=== PATIENT | female | born 2000 | race Caucasian/White ===

== ENCOUNTER 2022-05-03 09:14 | Observation (INO) | payer BC ==
[2022-04-29 10:25] VITALS: BMI 30.2
[2022-05-03] MEDS ORDERED: ONDANSETRON 4 MG/2 ML VIAL ONE (10:05)
[2022-05-03] MEDS ORDERED: LACTATED RINGERS 1,000 ML IV ONE ×2 (10:18→13:07)
[2022-05-03] MEDS ORDERED: SCOPOLAMINE 1 MG/72 HR PATCH TRANSDERM ONE (10:19)
[2022-05-03] MEDS ORDERED: DEXAMETHASONE SOD PHOSPHATE 4 MG/ML 1 ML VIAL IV ONE (10:19)
[2022-05-03] MEDS ORDERED: fentaNYL (PF) 50 MCG/1 ML VIAL IV ONE (10:41)
[2022-05-03] MEDS ORDERED: MIDAZOLAM HCL 10 MG/10 ML VIAL IV ONE (10:41)
[2022-05-03] MEDS ORDERED: MIDAZOLAM 2 MG/2 ML VIAL ONE (11:00)
[2022-05-03] MEDS ORDERED: DEXAMETHASONE SOD PHOSPHATE 4 MG/ML 1 ML VIAL ONE (11:00)
[2022-05-03] MEDS ORDERED: HYDROmorphone (PF) 1 MG/ML ONE (11:00)
[2022-05-03] MEDS ORDERED: ROPIVACAINE 5 MG/ML 30 ML VIAL ONE (11:00)
[2022-05-03] MEDS ORDERED: PROPOFOL 10 MG/ML 20 ML VIAL IV ONE (11:00)
[2022-05-03] MEDS ORDERED: LIDOCAINE 2% INJ 20 MG/ML (2 ML VIAL) ONE (11:00)
[2022-05-03] MEDS ORDERED: KETAMINE 10 MG/ML 20 ML VIAL ONE (11:00)
[2022-05-03] MEDS ORDERED: fentaNYL (PF) 50 MCG/ML 2 ML AMP ONE (11:00)
[2022-05-03] MEDS ORDERED: ceFAZolin 1,000 MG in SODIUM CHLORIDE 0.9% 1,000 ML IRRIGATION ONE (11:15)
--- NOTE | 2022-05-03 11:48 | P.ANPRN ---
Procedure Note - Anesthesia - Nerve Block Performed Left Adductor Canal Single Time Out Performed: Yes (1039) Date of Procedure: 05/03/22 Procedure Start Time: 10:40 Procedure Stop Time: 10:44 Location of Patient: PreOp Indication: Acute Post-Operative Pain, Dx/Pain Location (Left ankle pain), Requested by Surgeon Specifically requested for management of pain by DrMargarito: Francesco Rangel Sedation Type: Sedate with meaningful contact maintained Preparation: Sterile Prep Position: Supine Catheter: None Needle Types: Pajunk Needle Gauge: 21 (100 mm) Ultrasound used to visualize needle placement: Yes Ultrasound used to observe medication spread: Yes Injectate: 0.5% Ropivacaine (see comment for volume) (20 cc + 4mg of decadron) Blood Aspirated: No Pain Paresthesia on Injection Noted: No Resistance on Injection: Normal Image Stored and Saved: Yes Events: Uneventful and Well Tolerated Left Popliteal Single Time Out Performed: Yes (1039) Date of Procedure: 05/03/22 Procedure Start Time: 10:45 Procedure Stop Time: 10:51 Location of Patient: PreOp Indication: Acute Post-Operative Pain, Dx/Pain Location (Left ankle) Specifically requested for management of pain by Dr.: Francesco Rangel Sedation Type: Sedate with meaningful contact maintained Preparation: Sterile Prep Position: Right Lateral Catheter: None Needle Types: Pajunk Needle Gauge: 21 (100 mm) Ultrasound used to visualize needle placement: Yes Ultrasound used to observe medication spread: Yes Injectate: 0.5% Ropivacaine (see comment for volume) (15 cc + decadron 4 mg) Blood Aspirated: No Pain Paresthesia on Injection Noted: No Resistance on Injection: Normal Image Stored and Saved: Yes Events: Uneventful and Well Tolerated
--- NOTE | 2022-05-03 13:15 | XR ---
Intraoperative/procedural fluoroscopic services were provided for ORIF left ankle with distal tibia f ixation plate and screws and 2 medial malleolus screws. Total fluoroscopy time is 48 seconds with a t otal of 5 submitted images to PACS. Total DAP [id number]. Please see the operative note for further deta ils.
--- NOTE | 2022-05-03 13:15 | FL ---
Intraoperative/procedural fluoroscopic services were provided. Total fluoroscopy time is 48 seconds w ith a total of 5 submitted images to PACS. Please see the operative/procedural note for further detai ls. DAP: [id number]
[2022-05-03] MEDS ORDERED: HYDROmorphone 1 MG/ML 1 ML SYRINGE IVP PRN (13:19)
[2022-05-03] MEDS ORDERED: HYDROmorphone 0.5 MG/0.5 ML SYRINGE IVP PRN (13:19)
[2022-05-03] MEDS ORDERED: SENNOSIDES-DOCUSATE SODIUM 1 EACH TAB PO PRN (13:19)
[2022-05-03] MEDS ORDERED: HYDROcodone/APAP 5-325MG 1 EACH TAB PO PRN (13:19)
[2022-05-03] MEDS ORDERED: hydrOXYzine pamoate 25 MG CAP PO PRN (13:19)
[2022-05-03] MEDS: HYDROmorphone 0.5 MG/0.5 ML SYRINGE IVP PRN ×5 (13:47→22:08)
[2022-05-03] MEDS: HYDROcodone/APAP 5-325MG 1 EACH TAB PO PRN (17:07)
--- NOTE | 2022-05-03 18:02 | P.OP ---
Date of Procedure: 05/03/22 Preoperative Diagnosis: Closed left trimalleolar ankle fracture dislocation Postoperative Diagnosis: Same Procedure(s) Performed: 1. Open reduction internal fixation trimalleolar left ankle fracture (open reduction internal fixation medial and lateral malleolus, nonoperative management posterior malleolus) 2. Open reduction internal fixation left ankle syndesmosis 3. Application of short-leg splint by physician, left ankle Anesthesia: CARMELITA, regional Surgeon: Francesco Rangel Public Affairs Director #1: Raad León Estimated Blood Loss (ml): 10 IV fluids (ml): 1,200 Pathology: none sent Condition: stable Disposition: PACU Indications for Procedure: The patient is very pleasant previously healthy 21-year-old female was on a plane to [place] for a cruise when she lost her balance and fell resulting in an isolated injury to her left ankle. She was seen in an emergency department in [place], found to have an ankle fracture dislocation, reduced and splinted. She returned home for follow-up. I met with the patient and her mom in the office to discuss treatment. I recommended open reduction internal fixation after obtaining a computed tomography scan to better evaluate the posterior malleolus. I had a long discussion with the patient prior to surgery on the potential risks and complications of ankle fracture surgery. These risks include but are not limited to risk of anesthesia, superficial infection, deep infection, delayed wound healing, superficial wound necrosis, deep wound necrosis, damage to local blood vessels or nerves, fracture nonunion, fracture malunion, postoperative displacement of the ankle mortise, postoperative displacement of the syndesmosis, malreduction of the ankle mortise, posttraumatic arthritis, chronic pain, chronic swelling, an inability to regain preinjury level of function, generalized dissatisfaction with surgical outcome, DVT, PE, other medical complications, and possibly loss of life or limb. The patient understands that while these are the most common complications there are other less common complications possible. They provided their verbal and written consent to go forward with surgery. Description of Procedure: The patient's identified in preop holding and the correct left leg was marked with my initials. I reviewed the consent form with the patient and her parents. All their questions were answered. Her splint was taken down and the soft tissue over the left ankle was evaluated. There was wrinkling of the skin and no swelling or blister just that would prevent open reduction and internal fixation. The patient had a block placed by anesthesia. She was brought back to the operating room. She was positioned on the or table where general anesthetic, preoperative antibiotics, and tranexamic acid were given. A tourniquet was applied the proximal aspect the left leg. A bump was placed in the left buttock internally rotating the leg to neutral. A ramp was placed on the left leg to facilitate imaging. Prior to starting surgery timeout was performed identifying the correct patient, operative extremity, and procedure. Prior to prepping and draping the patient comparison x-rays including a mortise and a true lateral of the right ankle were obtained to use as a template during surgery for reconstruction of the left ankle. A nonsterile 1015 drape was then used followed by a presurgical scrub with a chlorhexidine scrub brush. The left leg was then prepped and draped in the standard sterile fashion. The leg was elevated, exsanguinated with an Esmarch bandage and the tourniquet was inflated to 250 mm a marker. I began by making a longitudinal incision to the distal fibula centered over the fracture site. Skin incision was made with a scalpel and dissection was carried down carefully through subcu tissue with tenotomy scissors. The superficial peroneal nerve was identified and carefully retracted. The fascia over the peroneal muscles and the periosteum over the distal fibula were sharply incised. The fracture site was immediately visualized. Consolidating hematoma and early callus were sharply debrided to allow cortical read of the reduction. There was a large posterior butterfly fragment. The butterfly fragment was minimally reduced from the distal fibula and a lobster claw clamp was placed to provisionally hold and prevent displacement of the butterfly fragment from the distal fibula. Then using longitudinal traction the proximal spike of the butterfly fragment was keyed into the more proximal shaft of the fibula. Visually the fracture appeared to be anatomically reduced. Fluoroscopy was used to verify the reduction. I then placed nonlocking 2.0 mm lag screws from both the proximal and distal shaft into the butterfly fragment generating excellent compression. Both lobster claw reduction clamps were removed and the reduction held. I then placed a one third tubular plate centered over the fracture. The position of the plate was verified with fluoroscopy. I placed 3 nonlocking 3.5mm screws proximal and distal to the fracture. The position of the hardware was verified with fluoroscopy. Attention was then turned to the medial malleolus. A longitudinal incision was made over the medial malleolus. Skin incision with a scalpel and dissection was carried down carefully to subcu tissue with tenotomy scissors. The saphenous vein was identified and carefully retracted anteriorly. The periosteum over the medial malleolus was sharply elevated. The medial malleolus fracture was gently booked open and consolidating hematoma was carefully removed from the joint. T he medial talar dome was visualized and free from any osteochondral fragments. The joint was thoroughly irrigated. A 2.0 mm drill bit was used to create a single hole just proximal to the fracture. One farhat of a [id number] reduction clamp was placed in this drill hole in the second farhat was placed at the tip of the medial malleolus. The medial malleolus fragment was carefully teased into position and the clamp was tightened nicely reducing the fracture. On visualization the fracture appeared anatomically reduced. The reduction was verified with fluoroscopy. I then placed 2 nonlocking 3.5 mm screws both measuring 46 mm through the medial malleolus fragment. The reduction clamp was removed and the medial malleolus remained reduced. Attention was then turned to the syndesmosis. I dissected anteriorly to the fibula distally to allow visualization of the incisura. Using the "thumb" technique the fibula was gently pushed into the notch of the distal fibula. Fluoroscopy was used to verify reduction. I also visualized anteriorly to make sure that the fibula was centered in the incisura. A lwzas-gd-alryp reduction clamp was then used with 1 farhat over the lateral plate and 1 farhat over the medial tibia. The reduction was verified with fluoroscopy and compared to the preoperative comparison films of the right ankle. I then placed a tight rope from lateral to medial across the syndesmosis. The Endobutton was positioned directly against the medial tibia and both limbs of the tight rope device were tightened. Fluoroscopy was brought in to verify reduction of the syndesmosis and placement of the tight rope device. Attention was then turned to the posterior malleolus. Fluoroscopy was brought in and a true talar dome overlap lateral was obtained and the posterior malleolus fragment appeared to be small and minimally reduced. The talus was centered under the tibial plafond. Due to the minimal displacement and small size the fracture fragment I elected to treat the posterior malleolus nonoperatively. Final fluoroscopic images were taken verifying reduction of the ankle mortise, syndesmosis, and placement of the hardware. Both wounds were thoroughly irrig ated and closed in layers. Sterile dressings were applied followed by a well- padded bulky Carrero splint with the ankle in neutral. The tourniquet was let down. The patient was then awoken from her anesthetic, transferred from the OR table to the [facility], and brought to recovery having tolerated the procedure well. Raad León PA-C was required as a skilled speech therapy assistant for patient positioning, exposure, reduction of fracture, placement of hardware, closure of wound, and application of splint. Plan: The patient is going to be admitted overnight for pain control. She is remain strictly nonweightbearing on her operative extremity. She'll be treated with both oral and IV pain medication. She will receive 2 doses postoperative antibiotics. Plan for discharge home tomorrow when her pain is controlled. She'll need follow-up in the office in 2 weeks for splint removal and nonweightbearing x-rays of the left ankle out of the splint.
[2022-05-03] MEDS: ASPIRIN 81 MG PO SCH (19:45)
[2022-05-04] MEDS: HYDROmorphone 0.5 MG/0.5 ML SYRINGE IVP PRN (03:47)
[2022-05-04 07:39] VITALS: RESP 16
[2022-05-04] MEDS: ASPIRIN 81 MG PO SCH (08:20)
[2022-05-04] MEDS: HYDROcodone/APAP 5-325MG 1 EACH TAB PO PRN (09:19)
--- NOTE | 2022-05-04 09:22 | P.DS ---
Providers Date of admission: 05/04/22 09:05 Expected date of discharge: 05/04/22 Attending physician: Francesco Rangel Primary care physician: [facility] Course: This patient is a 21-year-old female who sustained a left ankle fracture dislocation while on her way to [place]. She was initially evaluated in the emergency department in [place], where her ankle was reduced and splinted. She followed up with Dr. Rangel in the office. Patient underwent an open reduction and internal fixation of left trimalleolar ankle fracture on 05/03/22. The procedure was performed without complication or sequelae. Vital signs and labs are stable on postoperative day #1. Patient is examined bedside this morning. She states the pain in her left ankle is well controlled at this time. Patient has been ambulating with crutches post- operatively without issue. Patient's splint is comfortable. There are no new complaints the day of discharge. On examination, patient is sitting up in bed in no apparent distress. She is alert and oriented 3. On inspection of the left lower extremity, there is a clean, dry, intact short leg splint in place. Visible portion of the toes are warm and well perfused. Patient is able to wiggle toes appropriately. Patient is discharged home today in good condition. She should follow-up in the office in two weeks for splint removal and updated x-rays. Please see med rec for accurate list of discharge medications. Plan - Discharge Summary Discharge Rx Participant: No New Discharge Prescriptions: New Aspirin 81 mg PO BID 30 Days #60 tab Docusate [Colace] 100 mg PO BID #60 capsule HYDROcodone/APAP 5-325MG [Columbus 5-325] 1 - 2 tab PO Q6HR PRN 7 Days #28 tab PRN Reason: Pain No Action Hydrocodone/Acetaminophen [Hydrocodone/Acetaminophen 7.5-325] 1 tab PO Q8H PRN PRN Reason: Pain Nf-Apri Control 1 tab PO DAILY diazePAM [Diazepam] 2 mg PO DAILY PRN PRN Reason: Anxiety Docusate Sodium [Dok] 100 mg PO DAILY Discharge Medication List Docusate Sodium [Dok] 100 mg PO DAILY 04/29/22 [History] Hydrocodone/Acetaminophen [Hydrocodone/Acetaminophen 7.5-325] 1 tab PO Q8H PRN 04/29/22 [History] Nf-Apri Control 1 tab PO DAILY 04/29/22 [History] diazePAM [Diazepam] 2 mg PO DAILY PRN 04/29/22 [History] Aspirin 81 mg PO BID 30 Days #60 tab 05/04/22 [Rx] Docusate [Colace] 100 mg PO BID #60 capsule 05/04/22 [Rx] HYDROcodone/APAP 5-325MG [Columbus 5-325] 1 - 2 tab PO Q6HR PRN 7 Days #28 tab 05/04/22 [Rx] Follow up Appointment(s)/Referral(s): Brad Maharaj MD [Primary Care Provider] - 1 Week Francesco Rangel MD [Medical Doctor] - 2 Weeks (With Raad) Patient Instructions/Handouts: *Surgery [facility] - Scopalamine Patch Instructions Activity/Diet/Wound Care/Special Instructions: Strict non-weight bearing operative extremity with a walker, crutches. Keep splint clean, dry, intact until follow-up appointment in the office. Do not remove splint. Keep operative extremity elevated for swelling and pain control. Take pain medications as needed. Take aspirin 81mg BID x 4 weeks for blood clot prevention. Take Colace while taking Columbus. Follow-up in the office in two weeks at [facility]. Call the office with any questions or concerns,
[2022-05-04] MEDS ORDERED: HYDROcodone/APAP 5-325MG 1 EACH TAB PO PRN (12:35)
[2022-05-04 13:49] VITALS: BP 122/76; PULSE 96; TEMP 98.4
== END 2022-05-04 14:11 | disposition home or self-care (01) ==
LOC: OR 09:14 → 4SSUR 13:10 → OR 05-04 09:05
PROVIDERS: ADMIT Orthopaedic Surgery; ATTEND Orthopaedic Surgery
DX: S82.852A Displaced trimalleolar fracture of left lower leg, initial encounter for closed fracture (principal); W19.XXXA Unspecified fall, initial encounter; R45.0 Nervousness; F41.9 Anxiety disorder, unspecified; Z98.890 Other specified postprocedural states; Z82.49 Family history of ischemic heart disease and other diseases of the circulatory system; Z83.2 Family history of diseases of the blood and blood-forming organs and certain disorders involving the immune mechanism; Z79.891 Long term (current) use of opiate analgesic; Z79.899 Other long term (current) drug therapy
CPT/HCPCS: 97161; 64447; 81025; 64445; 76942; 73610; 27822; 27829; G0378; C1713; J2250 ×2; J1100; J0690 ×3; J2405; J3010 ×2; J1170 ×3; J2795; J2704; J2001

== ENCOUNTER 2022-05-15 15:27 | Emergency (ER) | payer BC ==
[2022-05-15 15:41] VITALS: RESP 20; TEMP 98
[2022-05-15] MEDS ORDERED: HYDROmorphone 1 MG/ML 1 ML SYRINGE IVP STA ×2 (16:06→18:07)
--- NOTE | 2022-05-15 16:26 | ED ---
General Adult HPI - General Chief complaint: Back Pain/Injury Stated complaint: post surgery/sob/back pain Time Seen by Provider: 05/15/22 15:58 Source: patient, RN notes reviewed Mode of arrival: ambulatory Limitations: no limitations - History of Present Illness Initial comments: Patient is a pleasant 21-year-old female presenting to the emergency department with concerns with back pain. Onset of symptoms was last night and continues. Patient denies any dyspnea however discomfort does increase with deep breaths. No leg pain or leg swelling. Patient does have history of recent left tib-fib fracture with surgical repair 12 days ago. No chest pain. - Related Data Home Medications Medication Instructions Recorded Confirmed Docusate Sodium [Dok] 100 mg PO DAILY 04/29/22 05/03/22 Hydrocodone/Acetaminophen 1 tab PO Q8H PRN 04/29/22 05/03/22 [Hydrocodone/Acetaminophen 7.5-325] Nf-Apri Control 1 tab PO DAILY 04/29/22 05/03/22 diazePAM [Diazepam] 2 mg PO DAILY PRN 04/29/22 05/03/22 Previous Rx's Medication Instructions Recorded Aspirin 81 mg PO BID 30 Days #60 tab 05/04/22 Docusate [Colace] 100 mg PO BID #60 capsule 05/04/22 HYDROcodone/APAP 5-325MG [Nova 1 - 2 tab PO Q6HR PRN 7 Days #28 05/04/22 5-325] tab Allergies Allergy/AdvReac Type Severity Reaction Status Date / Time No Known Allergies Allergy Verified 05/15/22 15:41 Review of Systems ROS Statement: Those systems with pertinent positive or pertinent negative responses have been documented in the HPI. ROS Other: All systems not noted in ROS Statement are negative. Constitutional: Denies: fever Eyes: Denies: eye pain ENT: Denies: ear pain Respiratory: Denies: cough, dyspnea Cardiovascular: Denies: chest pain Endocrine: Denies: fatigue Gastrointestinal: Denies: abdominal pain Genitourinary: Denies: urgency Musculoskeletal: Reports: as per HPI Skin: Denies: rash Neurological: Denies: weakness Past Medical History Past Medical History: No Reported History History of Any Multi-Drug Resistant Organisms: None Reported Past Surgical History: Orthopedic Surgery, Tonsillectomy Additional Past Surgical History / Comment(s): lt ankle Past Anesthesia/Blood Transfusion Reactions: No Reported Reaction Past Psychological History: Anxiety Smoking Status: Never smoker Past Alcohol Use History: Rare Past Drug Use History: None Reported - Past Family History Father Additional Family Medical History / Comment(s): "heart issues" General Exam Limitations: no limitations General appearance: alert, in no apparent distress Head exam: Present: normocephalic Eye exam: Present: normal appearance Neck exam: Present: normal inspection Respiratory exam: Present: normal lung sounds bilaterally. Absent: chest wall tenderness Cardiovascular Exam: Present: regular rate, normal rhythm Expanded Peripheral pulses: 2+: Radial (R), Radial (L) GI/Abdominal exam: Present: soft. Absent: tenderness Extremities exam: Present: normal inspection, other (Patient does have a walking boot on left lower leg). Absent: calf tenderness Back exam: Present: tenderness (Mild tenderness left mid back below the scapula) Neurological exam: Present: alert. Absent: motor sensory deficit Psychiatric exam: Present: normal affect, normal mood Skin exam: Present: normal color Course Vital Signs 05/15/22 05/15/22 05/15/22 15:36 16:25 16:47 Temperature 98.0 F Pulse Rate 99 102 H Respiratory 20 22 20 Rate Blood Pressure 115/76 108/66 O2 Sat by Pulse 99 96 Oximetry Medical Decision Making - Medical Decision Making Was pt. sent in by a medical professional or institution ([facility], [employer]OL [employer]ER, urgent care, hospital, or [place] health care facility...) When possible be specific @ -No Did you speak to anyone other than the patient for history (EMS, parent, family, police, friend...)? What history was obtained from this source @ -No Did you review nursing and triage notes (agree or disagree)? Why? @ -I reviewed and agree with nursing and triage notes Were old charts reviewed (outside hosp., previous admission, EMS record, old EKG, old radiological studies, urgent care reports/EKG's, [place] health care facility records)? Report findings @ -No old charts were reviewed Differential Diagnosis (chest pain, altered mental status, abdominal pain women, abdominal pain men, vaginal bleeding, weakness, fever, dyspnea, syncope, headache, dizziness, GI bleed, back pain, seizure, CVA, palpatations, mental health)? @ -Differential Back Pain: Strain, zoster, cauda equina syndrome, epidural abscess, vertebral osteomyelitis, discitis, fracture, subluxation, disc herniation, DJD, spinal stenosis, dissection, AAA, pancreatitis, peptic ulcer disease, pyelonephritis, kidney stone, this is not meant to be an all-inclusive list. EKG interpreted by me (3pts min.). @ -As above X-rays interpreted by me (1pt min.). @ -Chest x-ray shows no acute process CT interpreted by me (1pt min.). @ -Computed tomography scan shows very mild effusion U/S interpreted by me (1pt. min.). @ -None done What testing was considered but not performed or refused? (CT, X-rays, U/S, labs)? Why? @ -None What meds were considered but not given or refused? Why? @ -None Did you discuss the management of the patient with other professionals (professionals i.e. , PA, TOOL DRESSER, lab, RT, psych nurse, geriatric social work professor, driver/refuse collector, teacher, gifts officer, case operator)? Give summary @ -No Was smoking cessation discussed for >3mins.? @ -No Was critical care preformed (if so, how long)? @ -No Were there social determinants of health that impacted care today? How? (Homelessness, low income, unemployed, alcoholism, drug addiction, transportation, low edu. Level, literacy, decrease access to med. care, fdc, rehab)? @ -No Was there de-escalation of care discussed even if they declined (Discuss DNR or withdrawal of care, Hospice)? DNR status @ -No What co-morbidities impacted this encounter? (DM, HTN, Smoking, COPD, CAD, Cancer, CVA, ARF, Chemo, Hep., AIDS, mental health diagnosis, sleep apnea, morbid obesity)? @ -None Was patient admitted / discharged? Hospital course, mention meds given and route, prescriptions, significant lab abnormalities, going to OR and other pertinent info. @ -Patient evaluated and felt much better with pain meds however symptoms are concerning to return and patient is receptive to further medication prior to discharge. Patient and family are updated on results and need for follow-up. Undiagnosed new problem with uncertain prognosis? @ -No Drug Therapy requiring intensive monitoring for toxicity (Heparin, Nitro, Insulin, Cardizem)? @ -No Were any procedures done? @ -No Diagnosis/symptom? @ -Back pain Acute, or Chronic, or Acute on Chronic? @ -Acute Uncomplicated (without systemic symptoms) or Complicated (systemic symptoms)? @ -default Side effects of treatment? @ -No Exacerbation, Progression, or Severe Exacerbation? @ -No Poses a threat to life or bodily function? How? (Chest pain, [place], [place], pneumonia, PE, COPD, DKA, ARF, appy, cholecystitis, CVA, Diverticulitis, Homicidal, Suicidal, threat to staff... and all critical care pts) @ -No - Lab Data Result diagrams: 05/15/22 16:45 05/15/22 16:45 Lab Results 05/15/22 05/15/22 05/15/22 Range/Units 16:45 16:45 16:45 WBC 14.7 H (3.8-10.6) k/uL RBC 4.58 (3.80-5.40) m/uL Hgb 13.5 (11.4-16.0) gm/dL Hct 40.1 (34.0-46.0) % MCV 87.5 (80.0-100.0) fL MCH 29.4 (25.0-35.0) pg MCHC 33.6 (31.0-37.0) g/dL RDW 12.0 (11.5-15.5) % Plt Count 417 (150-450) k/uL MPV 7.2 Neutrophils % 85 % Lymphocytes % 10 % Monocytes % 3 % Eosinophils % 1 % Basophils % 0 % Neutrophils # 12.5 H (1.3-7.7) k/uL Lymphocytes # 1.4 (1.0-4.8) k/uL Monocytes # 0.5 (0-1.0) k/uL Eosinophils # 0.1 (0-0.7) k/uL Basophils # 0.1 (0-0.2) k/uL PT 10.0 (9.0-12.0) sec INR 0.9 (<1.2) APTT 20.9 L (22.0-30.0) sec D-Dimer 2.83 H (<0.60) mg/L FEU Sodium 135 L (137-145) mmol/L Potassium 4.4 (3.5-5.1) mmol/L Chloride 103 (98-107) mmol/L Carbon Dioxide 25 (22-30) mmol/L Anion Gap 7 mmol/L BUN 9 (7-17) mg/dL Creatinine 0.68 (0.52-1.04) mg/dL Est GFR (CKD-EPI)AfAm >90 (>60 ml/min/1.73 sqM) Est GFR (CKD-EPI)NonAf >90 (>60 ml/min/1.73 sqM) Glucose 108 H (74-99) mg/dL Calcium 9.5 (8.4-10.2) mg/dL Total Bilirubin 0.4 (0.2-1.3) mg/dL AST 21 (14-36) U/L ALT 22 (4-34) U/L Alkaline Phosphatase 114 (38-126) U/L Total Protein 7.1 (6.3-8.2) g/dL Albumin 3.9 (3.5-5.0) g/dL Disposition Clinical Impression: Mid back pain Disposition: HOME SELF-CARE Condition: Stable Instructions (If sedation given, give patient instructions): Back Pain (ED) Additional Instructions: Please do follow-up with primary care physician in the next couple days for recheck. Have primary care physician review computed tomography scan. Return for fever, difficulty breathing, increased pain, change or worsening symptoms or any other concerns. [id number] Motrin as needed. Is patient prescribed a controlled substance at d/c from ED?: No Referrals: Brad Maharaj MD [Primary Care Provider] - 1-2 days Time of Disposition: 18:10
--- NOTE | 2022-05-15 16:34 | XR ---
EXAMINATION TYPE: XR chest 1V portable DATE OF EXAM: 05/15/2022 COMPARISON: NONE HISTORY: Pain TECHNIQUE: Single view FINDINGS: Heart and mediastinum are normal. Lungs are clear of consolidation. There is no heart failure. No pleural effusion. IMPRESSION: No active cardiopulmonary disease. Suboptimal inspiration.
[2022-05-15 16:59] LABS: Basophils # (A) 0.1 k/uL (0-0.2); Basophils % (A) 0 %; Eosinophils # (A) 0.1 k/uL (0-0.7); Eosinophils % (A) 1 %; HCT 40.1 % (34.0-46.0); HGB 13.5 gm/dL (11.4-16.0); Lymphocytes # (A) 1.4 k/uL (1.0-4.8); Lymphocytes % (A) 10 %; MCH 29.4 pg (25.0-35.0); MCHC 33.6 g/dL (31.0-37.0); MCV 87.5 fL (80.0-100.0); Mean Platelet Volume 7.2; Monocytes # (A) 0.5 k/uL (0-1.0); Monocytes % (A) 3 %; Neutrophils # (A) 12.5 k/uL (1.3-7.7); Neutrophils % (A) 85 %; Platelet Count 417 k/uL (150-450); RBC 4.58 m/uL (3.80-5.40); WBC 14.7 k/uL (3.8-10.6)
[2022-05-15 17:11] LABS: ALT 22 U/L (4-34); AST 21 U/L (14-36); African American GFR (CKD) >90 (>60 ml/min/1.73 sqM); Albumin 3.9 g/dL (3.5-5.0); Alkaline Phosphatase 114 U/L (38-126); Anion Gap 7 mmol/L; Blood Urea Nitrogen 9 mg/dL (7-17); Calcium 9.5 mg/dL (8.4-10.2); Carbon Dioxide 25 mmol/L (22-30); Chloride 103 mmol/L (98-107); Glucose 108 mg/dL (74-99); Non-African American GFR(CKD) >90 (>60 ml/min/1.73 sqM); Potassium 4.4 mmol/L (3.5-5.1); Sodium 135 mmol/L (137-145); Total Bilirubin 0.4 mg/dL (0.2-1.3); Total Protein 7.1 g/dL (6.3-8.2)
[2022-05-15 17:21] LABS: INR 0.9 (<1.2)
[2022-05-15 17:25] LABS: Partial Thromboplastin Time 20.9 sec (22.0-30.0)
--- NOTE | 2022-05-15 17:49 | CT ---
EXAMINATION TYPE: CT angio chest DATE OF EXAM: 05/15/2022 COMPARISON: None HISTORY: posterior chest pain, elevated d-dimer. CT DLP: 270.8 mGycm Automated exposure control for dose reduction was used. CONTRAST: Performed with IV Contrast, patient injected with 75cc mL of Isovue 370. There are Three-D postprocessed images. There is no mediastinal adenopathy. There are no hilar masses. Thoracic aorta appears intact. No aneu rysm or dissection. There is normal contrast opacification of the pulmonary arteries. No filling defect. There is some pleural fluid and atelectasis and infiltrate left posterior lung base. The thoracic spine is intact. No compression fracture. The sternum is intact. IMPRESSION: No evidence of pulmonary embolism. There is some left lower lobe infiltrate and atelectasis and pleur al effusion.
[2022-05-15 18:53] VITALS: BP 115/79; PULSE 86
== END 2022-05-15 18:53 | disposition home or self-care (01) ==
LOC: EC 15:27
DX: M54.6 Pain in thoracic spine (principal); F41.9 Anxiety disorder, unspecified
CPT/HCPCS: 36415; 85379; 80053; 85025; 85610; 85730; 71045; 71275; 99284; 96374; 96376; J1170; Q9967

== ENCOUNTER 2022-06-05 10:16 | Emergency (ER) | payer BC ==
[2022-06-05] MEDS ORDERED: KETOROLAC 15 MG/ML 1 ML VIAL IVP STA (10:46)
[2022-06-05] MEDS ORDERED: KETOROLAC 15 MG/ML 1 ML VIAL IM STA (10:53)
[2022-06-05 11:25] LABS: Basophils % (A) 0 %; Eosinophils # (A) 0.4 k/uL (0-0.7); Eosinophils % (A) 4 %; HGB 13.9 gm/dL (11.4-16.0); Lymphocytes % (A) 18 %; MCH 28.9 pg (25.0-35.0); MCHC 33.8 g/dL (31.0-37.0); MCV 85.5 fL (80.0-100.0); Mean Platelet Volume 7.4; Monocytes # (A) 0.5 k/uL (0-1.0); Monocytes % (A) 5 %; Neutrophils # (A) 8.5 k/uL (1.3-7.7); Neutrophils % (A) 73 %; Platelet Count 388 k/uL (150-450); RBC 4.79 m/uL (3.80-5.40); RDW 12.6 % (11.5-15.5); WBC 11.6 k/uL (3.8-10.6)
[2022-06-05 11:35] LABS: ALT 26 U/L (4-34); AST 23 U/L (14-36); African American GFR (CKD) >90 (>60 ml/min/1.73 sqM); Alkaline Phosphatase 141 U/L (38-126); Anion Gap 9 mmol/L; Blood Urea Nitrogen 10 mg/dL (7-17); Calcium 9.6 mg/dL (8.4-10.2); Carbon Dioxide 25 mmol/L (22-30); Chloride 102 mmol/L (98-107); Glucose 89 mg/dL (74-99); Non-African American GFR(CKD) >90 (>60 ml/min/1.73 sqM); Potassium 4.4 mmol/L (3.5-5.1); Sodium 136 mmol/L (137-145); Total Bilirubin 0.5 mg/dL (0.2-1.3); Total Protein 7.1 g/dL (6.3-8.2)
[2022-06-05] MEDS ORDERED: APIXABAN 5 MG TAB PO STA (11:40)
--- NOTE | 2022-06-05 11:43 | US ---
EXAMINATION TYPE: US venous doppler duplex LE LT DATE OF EXAM: 06/05/2022 10:46 AM COMPARISON: NONE CLINICAL INDICATION: Female, 21 years old with history of swelling pain s/p ankle surgery; SIDE PERFORMED: Left TECHNIQUE: The lower extremity deep venous system is examined utilizing real time linear array sonog christopher with graded compression, doppler sonography and color-flow sonography. VESSELS IMAGED: Common Femoral Vein Deep Femoral Vein Greater Saphenous Vein * Femoral Vein Popliteal Vein Small Saphenous Vein * Proximal Calf Veins (* superficial vessels) Left Leg: Positive for DVT. Extensive thrombus seen from groin through proximal calf veins. No flow seen. Compressions deferred due to the acute appearance of thrombus. Grayscale, color doppler, spectral doppler imaging performed of the deep veins of the left lower extr emity. Hyperechoic material expands the lumen with absent color flow beginning in the left groin reg ion extending below the left knee. IMPRESSION: Long segment acute DVT in the left lower extremity.
[2022-06-05 11:52] LABS: C Reactive Protein 4.7 mg/dL (<1.0)
[2022-06-05 12:33] LABS: Erythrocyte Sedimentation Rate 34 mm/hr (0-20)
--- NOTE | 2022-06-05 13:27 | ED ---
Lower Extremity Injury HPI - General Chief Complaint: Extremity Injury, Lower Stated Complaint: Post surgical leg pain Time Seen by Provider: 06/05/22 10:27 Source: patient Mode of arrival: wheelchair Limitations: no limitations - History of Present Illness Initial Comments: Patient is a 21-year-old female who presents to the emergency department for lef t leg pain. Patient had trimalleolar ankle fracture surgery with Dr. Rangel approximately one month ago. She reports increased leg pain over the past 2 days mostly in her groin and thigh. She denies any recent falls or injury. She has not been bearing weight per instruction but she has been performing range of motion. She denies fever, chills, nausea, vomiting. No chest pain or shortness of breath. Patient does have family history of both DVT and PE. She is not on blood thinners. She does use oral contraceptives. Denies long car rides, airplane travel, known cancers, tobacco use - Related Data Home Medications Medication Instructions Recorded Confirmed Docusate Sodium [Dok] 100 mg PO DAILY 04/29/22 05/03/22 Hydrocodone/Acetaminophen 1 tab PO Q8H PRN 04/29/22 05/03/22 [Hydrocodone/Acetaminophen 7.5-325] Nf-Apri Control 1 tab PO DAILY 04/29/22 05/03/22 diazePAM [Diazepam] 2 mg PO DAILY PRN 04/29/22 05/03/22 Previous Rx's Medication Instructions Recorded Aspirin 81 mg PO BID 30 Days #60 tab 05/04/22 Docusate [Colace] 100 mg PO BID #60 capsule 05/04/22 HYDROcodone/APAP 5-325MG [Sandy 1 - 2 tab PO Q6HR PRN 7 Days #28 05/04/22 5-325] tab Apixaban [Eliquis Starter Pack 0 mg PO DIRECTED 30 Days #1 06/05/22 (for VTE)] packet Ibuprofen [Motrin] 800 mg PO Q8HR PRN #30 tab 06/05/22 Allergies Allergy/AdvReac Type Severity Reaction Status Date / Time No Known Allergies Allergy Verified 06/05/22 10:22 Review of Systems ROS Statement: Those systems with pertinent positive or pertinent negative responses have been documented in the HPI. ROS Other: All systems not noted in ROS Statement are negative. Past Medical History Past Medical History: No Reported History History of Any Multi-Drug Resistant Organisms: None Reported Past Surgical History: Orthopedic Surgery, Tonsillectomy Additional Past Surgical History / Comment(s): lt ankle Past Anesthesia/Blood Transfusion Reactions: No Reported Reaction Past Psychological History: Anxiety Smoking Status: Never smoker Past Alcohol Use History: Rare Past Drug Use History: None Reported - Past Family History Father Additional Family Medical History / Comment(s): "heart issues" General Exam Limitations: no limitations General appearance: alert, in no apparent distress Head exam: Present: atraumatic, normocephalic, normal inspection Respiratory exam: Present: normal lung sounds bilaterally. Absent: respiratory distress, wheezes, rales, rhonchi, stridor Cardiovascular Exam: Present: regular rate, normal rhythm, normal heart sounds. Absent: systolic murmur, diastolic murmur, rubs, gallop, clicks Extremities exam: Present: full ROM, normal capillary refill, other (Left lower extremity pink in color. No warmth, blanching, tenderness. Mild generalized non pitting edema. Negative elsie sign. DP 2+. Sensation intact ) Neurological exam: Present: alert, oriented X3, CN II-XII intact Psychiatric exam: Present: normal affect, normal mood Skin exam: Present: warm, dry, intact. Absent: rash Course Vital Signs 06/05/22 06/05/22 06/05/22 10:17 12:25 12:52 Temperature 99.2 F Pulse Rate 110 H 76 92 Respiratory 18 Rate Blood Pressure 108/78 O2 Sat by Pulse 98 97 97 Oximetry 06/05/22 13:31 Temperature 98.2 F Pulse Rate 91 Respiratory 14 Rate Blood Pressure 100/68 O2 Sat by Pulse 97 Oximetry Medical Decision Making - Medical Decision Making Was pt. sent in by a medical professional or institution (, PA, MAJOR ACCOUNT MANAGER, urgent care, hospital, or [facility]...) When possible be specific @ -No Did you speak to anyone other than the patient for history (EMS, parent, family, police, friend...)? What history was obtained from this source @ -No Did you review nursing and triage notes (agree or disagree)? Why? @ -I reviewed and agree with nursing and triage notes Were old charts reviewed (outside hosp., previous admission, EMS record, old EKG, old radiological studies, urgent care reports/EKG's, [facility] records)? Report findings @ -No old charts were reviewed Differential Diagnosis (chest pain, altered mental status, abdominal pain women, abdominal pain men, vaginal bleeding, weakness, fever, dyspnea, syncope, headache, dizziness, GI bleed, back pain, seizure, CVA, palpatations, mental health)? @ -Cellulitis, dependent edema, abscess, DVT EKG interpreted by me (3pts min.). @ -As above X-rays interpreted by me (1pt min.). @ -None done CT interpreted by me (1pt min.). @ -None done U/S interpreted by me (1pt. min.). @ -No. Ultrasound report shows long segment acute DVT from the groin through the proximal calf veins What testing was considered but not performed or refused? (CT, X-rays, U/S, labs)? Why? @ -None What meds were considered but not given or refused? Why? @ -None Did you discuss the management of the patient with other professionals (professionals i.e. , PA, MAJOR ACCOUNT MANAGER, lab, RT, psych nurse, clinical social worker, asphalt heater operator, teacher, probation officer, case managers)? Give summary @ -No Was smoking cessation discussed for >3mins.? @ -No Was critical care preformed (if so, how long)? @ -No Were there social determinants of health that impacted care today? How? (Homelessness, low income, unemployed, alcoholism, drug addiction, transportation, low edu. Level, literacy, decrease access to med. care, nursing home, rehab)? @ -No Was there de-escalation of care discussed even if they declined (Discuss DNR or withdrawal of care, Hospice)? DNR status @ -No What co-morbidities impacted this encounter? (DM, HTN, Smoking, COPD, CAD, Cancer, CVA, ARF, Chemo, Hep., AIDS, mental health diagnosis, sleep apnea, morbid obesity)? @ -None Was patient admitted / discharged? Hospital course, mention meds given and route, prescriptions, significant lab abnormalities, going to OR and other pertinent info. @ -Patient presenting with left lower extremity pain. She is neurovascularly intact. Patient has multiple risk factors for DVT. No chest pain or SOB. Ultrasound obtained which shows long segment acute DVT from the groin to the proximal calf veins. I did speak with Dr. Chance who does confirm iliofemoral involvement. I spoke with Dr. Singh for admission who declines states this can be managed outpatient. Patient given first dose of Eliquis. She will be discharged with Eliquis and vascular surgery referral. Patient discharged in stable condition. We discussed strict return parameters. Undiagnosed new problem with uncertain prognosis? @ -No Drug Therapy requiring intensive monitoring for toxicity (Heparin, Nitro, Insulin, Cardizem)? @ -No Were any procedures done? @ -No Diagnosis/symptom? @ -DVT Acute, or Chronic, or Acute on Chronic? @ -acute Uncomplicated (without systemic symptoms) or Complicated (systemic symptoms)? @ -uncomplicated Side effects of treatment? @ -No Exacerbation, Progression, or Severe Exacerbation? @ -No Poses a threat to life or bodily function? How? (Chest pain, [place], [place], pneumonia, PE, COPD, DKA, ARF, appy, cholecystitis, CVA, Diverticulitis, Homicidal, Suicidal, threat to staff... and all critical care pts) @ -No Dr. Carrero is my attending. - Lab Data Result diagrams: 06/05/22 11:05 06/05/22 11:05 Lab Results 06/05/22 06/05/22 Range/Units 11:05 11:05 WBC 11.6 H (3.8-10.6) k/uL RBC 4.79 (3.80-5.40) m/uL Hgb 13.9 (11.4-16.0) gm/dL Hct 41.0 (34.0-46.0) % MCV 85.5 (80.0-100.0) fL MCH 28.9 (25.0-35.0) pg MCHC 33.8 (31.0-37.0) g/dL RDW 12.6 (11.5-15.5) % Plt Count 388 (150-450) k/uL MPV 7.4 Neutrophils % 73 % Lymphocytes % 18 % Monocytes % 5 % Eosinophils % 4 % Basophils % 0 % Neutrophils # 8.5 H (1.3-7.7) k/uL Lymphocytes # 2.0 (1.0-4.8) k/uL Monocytes # 0.5 (0-1.0) k/uL Eosinophils # 0.4 (0-0.7) k/uL Basophils # 0.0 (0-0.2) k/uL ESR 34 H (0-20) mm/hr Sodium 136 L (137-145) mmol/L Potassium 4.4 (3.5-5.1) mmol/L Chloride 102 (98-107) mmol/L Carbon Dioxide 25 (22-30) mmol/L Anion Gap 9 mmol/L BUN 10 (7-17) mg/dL Creatinine 0.70 (0.52-1.04) mg/dL Est GFR (CKD-EPI)AfAm >90 (>60 ml/min/1.73 sqM) Est GFR (CKD-EPI)NonAf >90 (>60 ml/min/1.73 sqM) Glucose 89 (74-99) mg/dL Calcium 9.6 (8.4-10.2) mg/dL Total Bilirubin 0.5 (0.2-1.3) mg/dL AST 23 (14-36) U/L ALT 26 (4-34) U/L Alkaline Phosphatase 141 H (38-126) U/L C-Reactive Protein 4.7 H (<1.0) mg/dL Total Protein 7.1 (6.3-8.2) g/dL Albumin 4.0 (3.5-5.0) g/dL Disposition Clinical Impression: DVT (deep venous thrombosis) Disposition: HOME SELF-CARE Condition: Good Instructions (If sedation given, give patient instructions): Deep Vein Thrombosis (ED), Deep Vein Thrombosis Prevention (ED) Additional Instructions: Take medication as directed. Follow-up with vascular surgery in 1-2 days. Return to the emergency department if you experience new, concerning, or worsening symptoms. Prescriptions: Apixaban [Eliquis Starter Pack (for VTE)] 0 mg PO DIRECTED 30 Days #1 packet Ibuprofen [Motrin] 800 mg PO Q8HR PRN #30 tab PRN Reason: Pain Is patient prescribed a controlled substance at d/c from ED?: No Referrals: Brad Maharaj MD [Primary Care Provider] - 1-2 days Tatum Hammond DO [STAFF PHYSICIAN] - 1-2 days
[2022-06-05 13:38] VITALS: BP 100/68; PULSE 91; RESP 14; TEMP 98.2
== END 2022-06-05 13:39 | disposition home or self-care (01) ==
LOC: EC 10:16
DX: I82.4Y2 Acute embolism and thrombosis of unspecified deep veins of left proximal lower extremity (principal)
CPT/HCPCS: 36415; 80053; 85652; 85025; 86140; 93971; 99284; 96372; J1885